=== PATIENT | female | born 1985 | race African-American/Black ===

== ENCOUNTER 2021-11-28 13:14 | Emergency (ER) | payer OTHER, SELFPAY ==
[2021-11-28] MEDS ORDERED: Ketorolac Tromethamine 30 MG/ML VIAL ONE (16:09)
[2021-11-28] MEDS ORDERED: HYDROcodone/Acetaminophen 5/325 mg Tablet ONE (16:10)
== END 2021-11-28 16:14 | disposition home or self-care (01) ==
LOC: CSHERS 13:14
DX: S93.402A Sprain of unspecified ligament of left ankle, initial encounter (principal); X50.1XXA Overexertion from prolonged static or awkward postures, initial encounter; Y99.0 Civilian activity done for income or pay
CPT/HCPCS: J1885